=== PATIENT | male | born 1975 | race Caucasian/White ===

== ENCOUNTER 2024-11-19 06:21 | Day surgery (SDC) | payer BC, SELFPAY | END 2024-11-19 15:03 | disposition home or self-care (01) | LOC: GI 06:21 | PROVIDERS: ATTENDING PHYSICIAN Internal Medicine Gastroenterology | DX: Z12.11 Encounter for screening for malignant neoplasm of colon (principal); K57.30 Diverticulosis of large intestine without perforation or abscess without bleeding; K63.89 Other specified diseases of intestine; K64.0 First degree hemorrhoids | CPT/HCPCS: G0121 ==

== ENCOUNTER 2024-12-23 07:51 | Emergency (ER) | payer BC, SELFPAY ==
[2024-12-23 07:54] VITALS: BP 160/78
--- NOTE | 2024-12-23 08:17 | ED.GENMED ---
History of Present Illness
General
Chief Complaint: Abdominal Symptoms
Source: patient
Exam Limitations: none
Time Seen by Provider: 12/23/24 08:10
History of Present Illness
History of Present Illness:
See MDM
Past History
Past History
ED Past Medical History: Other (Diverticulosis)
ED Past Surgical History: None
Social History
Tobacco: Non-smoker
Alcohol: Occasional
Drug: None
Personal:
Living: with family
Employment: Employed
Family History
Family History: Other
Phy Exam
Physical Exam
Physical Exam:
See MDM
Course
Orders/Labs/Results
Orders:
Orders
12/23/24 08:16
CT Abd/pelvis W Iv Cont Urgent
Comment:
Reason For Exam: LLQ pain, abd pain, vomiting
0.9% Sodium Chloride 1000 ml [Nss] 1,000 ml IV BOLUS
Ketorolac [Toradol] 30 mg IV NOW STA
Ondansetron Injectable [Zofran] 4 mg IV NOW STA
12/23/24 08:22
Complete Blood Count/With Diff Urgent
Comprehensive Metabolic Panel Urgent
Lipase Urgent
Manual Differential Urgent
12/23/24 11:31
0.9% Sodium Chloride 1000 ml [Nss] 1,000 ml IV BOLUS
12/23/24 11:36
STOOL [C difficile Antigen & Toxins] Urgent
SHANIQUE Source: Feces/Stool
Specimen Description:
Stool Culture Urgent
SHANIQUE Source: Feces/Stool
Specimen Description:
Ondansetron Injectable [Zofran] 4 mg IV NOW STA
Abnormal Lab Results
12/23/24
08:22
RBC 6.12 H 10^6/uL
(4.70-6.10)
Hgb 19.5 H g/dL
(13.0-18.0)
Hct 54.2 H %
(39.0-52.0)
MCH 31.9 H pg
(27.0-31.0)
Band Neutrophils 16 H %
(0-3)
BUN 23 H mg/dl
(9-20)
Creatinine 1.4 H mg/dL
(0.7-1.3)
Glucose 156 H mg/dl
(70-99)
AST 14 L U/L
(17-59)
Alkaline Phosphatase 131 H U/L
(38-126)
12/23/24 08:22
12/23/24 08:22
Vital Signs
Initial and Last Documented VS:
Initial Vital Signs
Temp Pulse Resp BP Pulse Ox
98.5 F 78 16 160/78 98
12/23/24 07:54 12/23/24 07:54 12/23/24 07:54 12/23/24 07:54 12/23/24 07:54
Last Documented Vital Signs
Temp Pulse Resp BP Pulse Ox
98.5 F 96 20 123/89 97
12/23/24 07:54 12/23/24 09:37 12/23/24 09:37 12/23/24 09:37 12/23/24 09:37
MDM/Problems Addressed
Differential Diagnosis Includes:
HPI and MDM Narrative:
49-year-old male presenting with generalized abdominal pain, nausea, vomiting and diarrhea. Symptoms appear to have worsened over the past week. No sick contacts noted. He denies urinary symptoms. Patient complains of intermittent subjective
fevers. He does have a history of diverticulosis and had a flareup of diverticulitis in the past but states this feels worse. On exam, he does have vague abdominal tenderness with localized pain in the left lower quadrant. There is no rebound.
Given his prior history, will obtain CT to rule out any evidence of diverticulitis. Patient is clinically dry. Will obtain basic blood work and provide IV fluids. Will control nausea with Zofran and pain with Toradol
Physical exam
General: Mildly uncomfortable. Fatigued
HEENT: protecting airway. Dry mucous membranes
Neck: appears supple
CV: No evidence of cyanosis
Resp: No accessory muscle use
Abd: Non-distended. Mild left lower quadrant tenderness without rebound
Extremities: No deformities
Neuro: alert
Psych: Normal affect
Skin: Intact
Problems Addressed including Acute and Chronic Conditions affecting care:
1. Left lower quadrant abdominal pain
Acuity: acute
Prognosis: stable
Details: Given history, will obtain CT to rule out any evidence of diverticulitis. Patient given IV Toradol
2. Nausea and vomiting
Acuity: acute
Prognosis: stable
Details: Patient given IV Zofran
3. Dehydration
Acuity: acute
Prognosis: stable
Details: Patient given IV fluids
Updates
CT consistent with enterocolitis. No evidence of diverticulitis. Patient feeling better after fluids. Will provide second liter of IV fluid. Will order stool cultures if patient given sample
Differential Diagnosis (but not limited to): Colitis, gastroenteritis, diverticulitis
Testing considered: Urinalysis but he denies urinary symptoms
Drug therapy (if applicable): OTC meds, please see d/c instruction regarding Rx drugs
Amount and/or Complexity of Data Reviewed
Clinical info obtained from: Patient
External data reviewed: Recent colonoscopy with evidence of diverticulosis
Labs I independently reviewed (but not limited to): elevated BUN
Radiology: The CT scan was personally and independently reviewed. In addition, official CT report reviewed.
Pulse Ox: not hypoxic
EKG independently reviewed: N/A
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
Critical Care: N/A
Risk of Complication:
Social Determinants of health: Good social support
Discussed with other providers: N/A
Escalation of Care includes Admit/Obs: After being observed in the Emergency Department, pt stable for discharge.
Occasional wrong word or 'sound a like' substitutions may have occurred due to the inherent limitations of voice recognition software. Read the chart carefully and recognize, using context, where substitutions have occurred.
*Critical Care Note
Total Time (30-74mins, 75-104mins- exclusive of procedures): Not Applicable
ED Attending Note
-
Portions of this chart may have been created with voice recognition software.� Occasional wrong word or��sound alike� substitutions may have occurred due to the inherent limitations of voice recognition software.
Discharge Plan
Departure
Patient Disposition: Home (Routine Discharge)
Date of Disposition: 12/23/24
Time of Disposition: 11:37
Patient with high blood pressure during this ER visit?: No
Discharge Problem:
Enterocolitis
Prescriptions:
New
ondansetron 4 mg Tablet,Disintegrating
4 mg PO BIDPRN PRN (Reason: nausea/vomiting) Qty: 10 0RF
No Action
methylprednisolone [Medrol (Levi)] 4 MG tablets,dose pack
4 tab PO . DIRECT
ondansetron 4 MG tablet,disintegrating
4 mg PO TIDPRN PRN (Reason: NAUSEA) Qty: 20 0RF
Referrals:
Ivan Mckee DO [Family Provider] -
Activity Restrictions/Additional Instructions:
Please return for any worsening symptoms.
You may return at any time if you have further concerns.
Please follow up with your doctor at the first available appointment, preferably this week.
Thank you for choosing [facility].
Interventions
Interventions:
*Risk Screen - Suicide Last Done: 12/23/24 07:54
*Neglect/Abuse Screening Last Done: 12/23/24 07:54
[facility] Assessment Last Done: 12/23/24 08:42
Discharge Date and Time
Print Language: SYRIAC
[2024-12-23] MEDS: NSS 1000 IV ×2 (08:24→11:32)
[2024-12-23] MEDS: ZOFRAN 4 MG IV ×2 (08:25→11:43)
[2024-12-23] MEDS: TORADOL 30 MG IV (08:25)
[2024-12-23 08:43] LABS: ALT (SGPT) 19 U/L (0-50); AST (SGOT) 14 U/L (17-59); Albumin 4.4 g/dl (3.5-5.0); Alkaline Phosphatase 131 U/L (38-126); Blood Urea Nitrogen 23 mg/dl (9-20); Calcium 8.6 mg/dl (8.4-10.2); Carbon Dioxide 24 mmol/L (22-30); Chloride 99 mmol/L (98-107); Glucose 156 mg/dl (70-99); Potassium 3.5 mmol/L (3.5-5.1); Sodium 135 mmol/L (135-145); Total Bilirubin 0.9 mg/dl (0.2-1.3); Total Protein 6.6 g/dl (6.3-8.2); eGFR > 60.00
[2024-12-23 08:56] LABS: Hematocrit 54.2 % (39.0-52.0); Hemoglobin 19.5 g/dL (13.0-18.0); Mean Corpuscular Hgb 31.9 pg (27.0-31.0); Mean Corpuscular Volume 88.6 fL (80.0-94.0); Mean Platelet Volume 10.2 fL (7.4-10.4); Platelet Count 143 10^3/uL (130-400); Red Blood Cell Count 6.12 10^6/uL (4.70-6.10); Red Cell Dist. Width 13.3 % (11.5-14.5); White Blood Cell Count 5.4 10^3/uL (4.8-10.8)
[2024-12-23 09:37] VITALS: BP 123/89
[2024-12-23 10:34] LABS: Absolute Neutrophils -Man Diff 3.1 10^3/uL (1.4-6.5); Atypical Lymphocytes 2 %; Band Neutrophils 16 % (0-3); Eosinophils 3 % (0-6); Lymphocytes 33 % (20-51); Monocytes 3 % (2-9); Normal RBC Morphology Yes; Platelets Checked Yes; Segmented Neutrophils 43 % (42-75); Total Cells Counted 100
[2024-12-23 11:02] LABS: Lipase 43 U/L (23-300)
[2024-12-23 12:00] VITALS: BP 116/84
== END 2024-12-23 12:35 | disposition home or self-care (01) ==
LOC: EMR 07:51
PROVIDERS: Emergency Medicine; EMERGENCY PHYSICIAN Student in an Organized Health Care Education/Training Program; FAMILY PHYSICIAN Family Medicine
DX: K52.9 Noninfective gastroenteritis and colitis, unspecified (principal)
CPT/HCPCS: 99283; 96374; 96375; 96376; 96361; 74177; 80053; 83690; 85025; Q9967

== ENCOUNTER 2025-01-06 16:58 | Emergency (ER) | payer BC, SELFPAY ==
[2025-01-06 17:00] VITALS: BP 130/85
[2025-01-06 17:26] LABS: % Basophils 0.2 % (0-2); % Eosinophils 16.8 % (0-6); % Immature Granulocytes 0.2 % (0-0.5); % Lymphocytes 28.9 % (20.5-51.1); % Monocytes 3.4 % (1.7-9.3); % Neutrophils 50.5 % (42.2-75.2); Absolute Eosinophils 0.8 10^3/uL (0-0.7); Absolute Lymphocytes 1.4 10^3/uL (1.2-3.4); Absolute Monocytes 0.2 10^3/uL (0.1-0.6); Absolute Neutrophils 2.4 10^3/uL (1.4-6.5); Hematocrit 47.6 % (39.0-52.0); Hemoglobin 16.5 g/dL (13.0-18.0); Mean Corp Hgb Conc. 34.7 g/dL (33.0-37.0); Mean Corpuscular Hgb 31.8 pg (27.0-31.0); Mean Corpuscular Volume 91.7 fL (80.0-94.0); Mean Platelet Volume 9.4 fL (7.4-10.4); Nucleated Red Blood Cells % 0 % (-); Platelet Count 186 10^3/uL (130-400); Red Blood Cell Count 5.19 10^6/uL (4.70-6.10); Red Cell Dist. Width 13.3 % (11.5-14.5); White Blood Cell Count 4.7 10^3/uL (4.8-10.8)
[2025-01-06 17:33] LABS: ALT (SGPT) 30 U/L (0-50); AST (SGOT) 19 U/L (17-59); Albumin 3.5 g/dl (3.5-5.0); Alkaline Phosphatase 87 U/L (38-126); Blood Urea Nitrogen 21 mg/dl (9-20); Calcium 8.5 mg/dl (8.4-10.2); Carbon Dioxide 28 mmol/L (22-30); Chloride 103 mmol/L (98-107); Glucose 104 mg/dl (70-99); Lipase 36 U/L (23-300); Sodium 137 mmol/L (135-145); Total Bilirubin 0.5 mg/dl (0.2-1.3); Total Protein 5.8 g/dl (6.3-8.2); eGFR > 60.00
--- NOTE | 2025-01-06 19:27 | ED.GENMED ---
History of Present Illness
General
Chief Complaint: Abdominal Symptoms
Source: patient and records
Exam Limitations: none
Time Seen by Provider: 01/06/25 19:08
Nursing documentation reviewed up to this point in time: agreed with except (Denies abdominal pain to me)
History of Present Illness
History of Present Illness:
49-year-old male with past medical history of hyperlipidemia presents to the ER for evaluation of nausea, vomiting, diarrhea. Patient was notably here 2 weeks ago with similar symptoms found to have enteritis thought to potentially be viral and was
discharged with instructions for supportive measures. He says that his symptoms improved a few days after leaving the ER. He says the that that last Monday symptoms started to slightly return and have progressively worsened since then; he says
yesterday they improved slightly but today they were a bit worse again and so he decided to come back to the emergency room to be reassessed. He describes nauseated feeling with belching and dyspepsia. He did have an episode of vomiting today but
he says vomiting has not been as prominent over the past few days as it was prior to last ER visit. He says he has had diarrhea�yellow nonbloody. He denies any abdominal pain to me. Has not had a fever. Denies any chest pain, shortness of breath
or any other complaints. He denies prior surgeries. Notably patient says that he has been on Mounjaro for the past few months. He says that return of symptoms coincides with when he took his most recent dose of Mounjaro.
Past History
Past History
ED Past Medical History: Other (Diverticulosis)
ED Past Surgical History: None
Social History
Tobacco: Non-smoker
Alcohol: Occasional
Drug: None
Personal:
Living: with family
Employment: Employed
Family History
Family History: Other
Review of Systems
Review of Systems
All Other Systems: ROS reviewed and negative except as documented in HPI and ROS
Constitutional: Reports fatigue; Denies fever
Respiratory: Denies trouble breathing
Cardiac: Denies chest pain
ABD/GI: Reports nausea, vomiting and diarrhea; Denies abdominal pain
: Denies dysuria or flank pain
Musculoskeletal: Denies neck pain or back pain
Neurological: Denies headache
Phy Exam
Physical Exam
Physical Exam:
General: Awake, alert; no acute distress
Head: Normocephalic, atraumatic
Eyes: Conjunctiva normal, sclera anicteric
Throat: Airway intact, handling secretions
Neck: Trachea midline, supple without meningismus
Lungs: Clear to auscultation bilaterally, no wheezing, rales, rhonchi
Heart: Regular rate and rhythm, no murmurs, gallops, or rubs�triage tachycardia resolved by myself
Abd: Soft, non distended, nontender to deep palpation with no abdominal mass
Back: No CVA tenderness
Neuro: No gross deficits
Skin: no rash
Extremities: Warm and well-perfused
Scores
Heart Failure Risk
Heart Failure Risk Score: Not Applicable
Heart Score for Chest Pain Patients
STEMI patient?: Not applicable
Withdrawal Assessment of Alcohol
Withdrawal Assessment Completed?: Not applicable
Course
Orders/Labs/Results
Orders:
Orders
01/06/25 17:09
Complete Blood Count/With Diff Urgent
Comprehensive Metabolic Panel Urgent
Lipase Urgent
01/06/25 19:24
Ondansetron Orally Disint [Zofran Odt (Orally Disintegrating)] 4 mg PO NOW STA
Pantoprazole [Protonix] 40 mg PO NOW STA
Abnormal Lab Results
01/06/25
17:09
WBC 4.7 L 10^3/uL
(4.8-10.8)
MCH 31.8 H pg
(27.0-31.0)
Absolute Eos (auto) 0.8 H 10^3/uL
(0-0.7)
Eosinophils % 16.8 H %
(0-6)
BUN 21 H mg/dl
(9-20)
Glucose 104 H mg/dl
(70-99)
Total Protein 5.8 L g/dl
(6.3-8.2)
01/06/25 17:09
01/06/25 17:09
Vital Signs
Initial and Last Documented VS:
Initial Vital Signs
Temp Pulse Resp BP Pulse Ox
36.5 C 102 16 130/85 100
01/06/25 17:00 01/06/25 17:00 01/06/25 17:00 01/06/25 17:00 01/06/25 17:00
Last Documented Vital Signs
Temp Pulse Resp BP Pulse Ox
36.5 C 102 16 130/85 100
01/06/25 17:00 01/06/25 17:00 01/06/25 17:00 01/06/25 17:00 01/06/25 17:00
MDM/Problems Addressed
Differential Diagnosis Includes:
Medication side effect (Mounjaro), viral infection, PUD/GERD
MDM/Problems Addressed:
49-year-old male presents for evaluation of nausea, vomiting, diarrhea�had an episode 2 weeks ago for which she was seen in the emergency room. CT at that time showed enteritis but no other acute pathology and he was treated with supportive
measures. Symptoms improved after ER visit and then returned shortly after he took his next dose of Mounjaro. Vitals and exam as above. He had labs sent in triage including a CBC and a CMP which showed no clinically significant abnormalities.
His abdomen is nontender and he denies any abdominal pain subjectively. Very low suspicion for emergent intra-abdominal pathology. In my judgment no indication for repeat emergent abdominal imaging at this point. I suspect his symptoms are likely
related to Mounjaro although might also consider gastritis/PUD given report of belching and dyspepsia (somewhat less likely given his report of diarrhea as a prominent symptom). Plan to start on PPI, Zofran as needed. Advised for bland diet and to
discontinue Mounjaro. Follow-up with primary care physician. Patient feels comfortable with this plan. All questions answered.
*Radiology
Radiology exam reviewed: radiology read reviewed (Reviewed prior CT)
*Pulse Oximetry
Patient hypoxic: no
*Critical Care Note
Total Time (30-74mins, 75-104mins- exclusive of procedures): Not Applicable
Data Reviewed
Source: patient and records
Further Testing Considered But Not Given:
Considered repeat CT scan as above
ED Attending Note
-
Portions of this chart may have been created with voice recognition software.� Occasional wrong word or��sound alike� substitutions may have occurred due to the inherent limitations of voice recognition software.
Discharge Plan
Departure
Patient Disposition: Home (Routine Discharge)
Date of Disposition: 01/06/25
Time of Disposition: 19:26
Patient with high blood pressure during this ER visit?: No
Discharge Problem:
Abdominal pain
Instructions: Foster Diet, Abdominal Pain
Prescriptions:
New
pantoprazole 40 mg tablet,delayed release (DR/EC)
40 mg PO DAILY Qty: 14 0RF
ondansetron 4 mg tablet,disintegrating
4 mg PO TIDPRN PRN (Reason: nausea/vomiting) Qty: 14 0RF
No Action
methylprednisolone [Medrol (Levi)] 4 MG tablets,dose pack
4 tab PO . DIRECT
ondansetron 4 MG tablet,disintegrating
4 mg PO TIDPRN PRN (Reason: NAUSEA) Qty: 20 0RF
ondansetron 4 mg Tablet,Disintegrating
4 mg PO BIDPRN PRN (Reason: nausea/vomiting) Qty: 10 0RF
Referrals:
UNKNOWN - PT DOES,NOT KNOW [Family Provider] -
Activity Restrictions/Additional Instructions:
You should stop taking Mounjaro and follow-up with your primary doctor to discuss whether an alternate medication may be better. You should take the pantoprazole for 2 weeks and follow-up with your primary doctor to discuss whether you should
continue to take it beyond this. You can use the Zofran as needed for nausea. You should keep your diet bland for the next 2 to 3 days and as your symptoms start to improve you can return to your usual diet.
If your symptoms are worsening or if they are not improving with these conservative measures please return for reassessment.
Thank you for visiting the Emergency Department at [facility].
1. Please schedule a follow up appointment as directed. Call first thing tomorrow morning to make an appointment.
2. If indicated, please take your medications as instructed and indicated on discharge paperwork.
3. If any of your symptoms do not improve, or persist, or become more severe within 6-12 hours, please return to the emergency department for further care.
4. Please return to the emergency department if you develop a headache, neck pain/stiffness, fever greater than 100.4F, chest pain, shortness of breath, persistent nausea, vomiting, slurred speech, difficulty walking, numbness/tingling, weakness,
signs of infection or any other symptoms that are worrisome to you.
Please call [phone] if you have any questions.
Interventions
Interventions:
*Risk Screen - Suicide Last Done: 01/06/25 17:00
*General Assessment Last Done: 01/06/25 17:00
*Neglect/Abuse Screening Last Done: 01/06/25 17:00
Discharge Date and Time
Print Language: COLOMBIAN
[2025-01-06] MEDS: ZOFRAN ODT (ORALLY DISINTEGRATING) 4 MG PO (19:31)
[2025-01-06] MEDS: PROTONIX 40 MG PO (19:31)
[2025-01-06 19:40] VITALS: BP 116/83
== END 2025-01-06 19:55 | disposition home or self-care (01) ==
LOC: EMR 16:58
PROVIDERS: Emergency Medicine; EMERGENCY PHYSICIAN Emergency Medicine; FAMILY PHYSICIAN Family Medicine
DX: R10.9 Unspecified abdominal pain (principal); R11.2 Nausea with vomiting, unspecified; R19.7 Diarrhea, unspecified; E78.5 Hyperlipidemia, unspecified; Z79.899 Other long term (current) drug therapy
CPT/HCPCS: 99283; 80053; 83690; 85025

== ENCOUNTER → 2025-05-30 08:30 | Outpatient (REF) | payer BC, SELFPAY | LOC: HWRAD 08:30 | PROVIDERS: ATTENDING PHYSICIAN Family Medicine | DX: Z13.6 Encounter for screening for cardiovascular disorders (principal); E78.2 Mixed hyperlipidemia | CPT/HCPCS: 75571 ==

== ENCOUNTER → 2025-06-06 08:00 | Outpatient (REF) | payer BC, SELFPAY | LOC: HWRAD 08:00 | PROVIDERS: ATTENDING PHYSICIAN Family Medicine | DX: R10.11 Right upper quadrant pain (principal) | CPT/HCPCS: 76700 ==

== ENCOUNTER → 2025-07-08 16:22 | Outpatient (REF) | payer BC, SELFPAY ==
[2025-07-08 18:10] LABS: Hematocrit 42.6 % (39.0-52.0); Hemoglobin 14.3 g/dL (13.0-18.0); Mean Corp Hgb Conc. 33.6 g/dL (33.0-37.0); Mean Corpuscular Volume 96.8 fL (80.0-94.0); Platelet Count 90 10^3/uL (130-400); Red Cell Dist. Width 13.6 % (11.5-14.5)
[2025-07-09 09:07] LABS: Peripheral Review-Pathologist E
[2025-07-09 09:33] LABS: Absolute Neutrophils -Man Diff 1.0 10^3/uL (1.4-6.5); Normal RBC Morphology Yes; Platelets Checked Yes; Total Cells Counted 100
== END ==
LOC: REG 16:22
PROVIDERS: ATTENDING PHYSICIAN Nurse Practitioner Adult Health; FAMILY PHYSICIAN Family Medicine
DX: D70.9 Neutropenia, unspecified (principal); D69.6 Thrombocytopenia, unspecified
CPT/HCPCS: 36415; 85025

== ENCOUNTER → 2025-07-29 08:53 | Outpatient (REF) | payer BC, SELFPAY ==
[2025-07-29 09:20] LABS: Hematocrit 39.0 % (39.0-52.0); Hemoglobin 13.8 g/dL (13.0-18.0); Mean Corp Hgb Conc. 35.4 g/dL (33.0-37.0); Mean Corpuscular Volume 93.8 fL (80.0-94.0); Platelet Count 84 10^3/uL (130-400); Red Cell Dist. Width 13.2 % (11.5-14.5)
[2025-07-29 09:21] LABS: INR 1.01; PT 13.6 Sec (11.4-14.6)
[2025-07-29] MEDS: ATIVAN 0.5 MG PO (09:34)
[2025-07-29 09:37] VITALS: BP 145/98; BP_SYST 65
[2025-07-29 09:50] LABS: Nucleated Red Blood Cells % 0.7 % (-)
[2025-07-29 11:35] VITALS: BP 140/90
[2025-07-29 11:40] VITALS: BP 140/98
[2025-07-29 11:46] VITALS: BP 143/93
[2025-07-29 12:05] VITALS: BP 120/91
== END ==
LOC: RADI 08:53
PROVIDERS: ATTENDING PHYSICIAN Internal Medicine Hematology & Oncology; FAMILY PHYSICIAN Family Medicine; OTHER PHYSICIAN Physician Assistant
DX: C91.40 Hairy cell leukemia not having achieved remission (principal); D69.6 Thrombocytopenia, unspecified; Z01.812 Encounter for preprocedural laboratory examination; Z01.818 Encounter for other preprocedural examination
CPT/HCPCS: 36415; 38222; 77012; 85025; 85610; 88305; 88311; 88312; 88313